=== PATIENT | female | born 1955 | race Caucasian/White ===

== ENCOUNTER 2016-06-14 12:00 | Outpatient (RCR) | payer MEDICARE, MEDICAID ==
[2016-03-21 09:45] VITALS: BP 141/72; PULSE 93; TEMP 98.3
[2016-04-19 11:04] VITALS: BP 140/72; PULSE 94; TEMP 99.1
[2016-05-17 11:34] VITALS: BP 163/87; PULSE 94; TEMP 98.7
[~2016-06-14] VITALS: Ht 177.8 cm; Wt 112.7 kg
[~2016-06-14 12:00] MED LIST: AMBIEN 10MG10 MG PO; AMBIEN CR12.5 MG PO; AMBIEN10 MG PO; AMOXICILLIN 50500 MG PO; AMOXICILLIN/CLA1 TA1 PO; ANTIVERT 25MG25 MG PO; ASPIR-LOW81 MG PO; ASPIRIN E.C. 8181 MG PO; ATIVAN 1MG T1 MG/TAB PO; ATIVAN0.5 MG PO; AUGMENTIN 250 M1 TAB PO; BIAXIN 250MG T250 M1 PO; BIAXIN 500MG T500 MG PO; BIAXIN XL500 MG PO; BIAXIN500 MG PO; CEFTIN500 MG PO; CEPHALEXIN500 M1 PO; CIPRO 250MG TA250 MG PO; CIPRO 500MG TA500 MG PO; DEMEROL IJ; FLEXERIL 1010 MG/TAB PO; FLEXERIL10 MG PO; HALCION0.25 MG PO; HCTZ; HCTZ 25MG TAB25 MG PO; HYDROXYZINE PAM25 MG PO; HYGROTON 2525 MG/TAB PO; HYGROTON25 MG PO; INDOCIN SR75 MG PO; KLONOPIN 0.5MG0.5 MG PO; LASIX 40MG TABL40 MG PO; LEVAQUIN 250MG250 MG PO; LEVAQUIN 5500 MG/TA1 PO; LISINOPRIL10 MG PO; LORTAB 10/500 51 TAB PO; LORTAB 5/500 501 TAB PO; LUNESTA 1MG TAB1 MG PO; MELATONIN20 MG PO; MELATONIN5 M1 PO; MELATONIN5 MG PO; METHADONE H10 MG/TAB PO; MOBIC 7.5MG7.5 MG PO; NEXIUM 40MG40 MG PO; NEXIUM40 MG PO; NORCO 325 MG-51 TAB PO; NORCO 325 MG-7.1 TAB PO; OCEAN NASAL SPR45 ML; PERCOCET 325 MG1 TA2 PO; PERCOCET 325 MG1 TA3 PO; PHENERGAN 25 TA25 MG PO; PHENERGAN W/CO120 M1 PO; PHENERGAN25 MG RC; PHENERGAN50 MG/SUPP RC; PREDNISONE20 MG PO; PRINIVIL40 MG PO; PRINZIDE 12.5 M1 TAB PO; PROAIR HFA0.09 MG/AC IH; PROMETHAZINE50 MG/ML IV; PYRIDIUM200 M1 PO; ROBAXIN 75750 MG/TAB PO; ROCEPHIN1 GM IM; SEROQUEL25 MG PO; XANAX 1MG1 MG PO; XANAX0.5 MG PO; XANAX2 MG PO; ZESTRIL40 MG PO; ZITHROMAX Z PA250 MG PO
[2016-06-14 13:07] VITALS: BP 152/96; PULSE 106; TEMP 98.2
[2016-12-01] MEDS ORDERED: DEMEROL IV (13:38)
[2016-12-01] MEDS ORDERED: PROMETHAZINE50 MG/ML IV (13:39)
== END 2016-06-19 | disposition still patient (30) ==
LOC: EUO
DX: G43.809 Other migraine, not intractable, without status migrainosus (principal)
CPT/HCPCS: J1644; J2175; J2550

== ENCOUNTER 2016-10-09 15:00 | Outpatient (RCR) | payer MEDICARE, MEDICAID ==
[2016-07-12 14:25] VITALS: BP 154/82; PULSE 112; TEMP 98.9
[2016-08-04 13:28] VITALS: BP 145/88; PULSE 106; TEMP 98.8
[2016-09-06 13:05] VITALS: BP 169/82; PULSE 86; TEMP 99.2
[~2016-10-09] VITALS: Ht 177.8 cm; Wt 113.0 kg
[2016-10-09 14:30] VITALS: BP 139/87; PULSE 91; TEMP 98.3
[2016-12-01] MEDS ORDERED: DEMEROL IV (13:38)
[2016-12-01] MEDS ORDERED: PROMETHAZINE50 MG/ML IV (13:39)
== END 2016-10-10 | disposition still patient (30) ==
LOC: EUO
DX: Z45.2 Encounter for adjustment and management of vascular access device (principal)
CPT/HCPCS: J1644; J2175; J2550

== ENCOUNTER 2017-01-15 14:00 | Outpatient (RCR) | payer MEDICARE, MEDICAID ==
[2016-11-03 16:48] VITALS: BP 169/101; PULSE 94; TEMP 99.3
[~2017-01-15] VITALS: Ht 177.8 cm; Wt 119.0 kg
[~2017-01-15 14:00] MED LIST changes: +DEMEROL IV
[2017-01-15 14:50] VITALS: BP 155/94; PULSE 118; TEMP 99.5
[2017-02-02] MEDS ORDERED: [UNRECOGNIZED DRUG - OTHER] PO (12:59)
== END 2017-02-01 ==
LOC: EUO
DX: G43.009 Migraine without aura, not intractable, without status migrainosus (principal)
CPT/HCPCS: J1644; J2175; J2550

== ENCOUNTER 2017-04-10 13:45 | Outpatient (RCR) | payer MEDICARE, MEDICAID ==
[~2017-04-10 13:45] MED LIST changes: +ATARAX50 MG PO; +[UNRECOGNIZED DRUG - OTHER] PO
[2017-04-10 15:04] VITALS: BP 163/82; PULSE 102; TEMP 99.2
== END 2017-04-10 15:30 | disposition home or self-care (01) ==
LOC: EUO 13:45
DX: R51 Headache (principal)
CPT/HCPCS: J1170; J1644; J2550

== ENCOUNTER → 2017-05-04 | Outpatient (CLI) | payer MEDICARE, MEDICAID ==
[2017-05-04 14:30] VITALS: BP 170/82; PULSE 88; TEMP 98
== END ==
LOC: EUO 13:29
DX: R51 Headache (principal)
CPT/HCPCS: J1170; J1644; J2550

== ENCOUNTER 2017-10-10 16:00 | Outpatient (RCR) | payer MEDICARE, MEDICAID ==
[2017-08-14 15:37] VITALS: BP 141/92; PULSE 95; TEMP 98.3
[2017-09-12 10:50] VITALS: BP 117/89; PULSE 119; TEMP 99.3
[~2017-10-10] VITALS: Ht 177.8 cm; Wt 106.0 kg
[2017-10-10 15:55] VITALS: BP 181/110; PULSE 94; TEMP 98.8
== END 2017-11-12 | disposition home or self-care (01) ==
LOC: EUO
DX: G43.809 Other migraine, not intractable, without status migrainosus (principal); Z45.2 Encounter for adjustment and management of vascular access device; Z95.828 Presence of other vascular implants and grafts
CPT/HCPCS: J1170; J1644; J2550

== ENCOUNTER 2018-01-23 12:00 | Outpatient (RCR) | payer MEDICARE, MEDICAID ==
[2017-11-21 14:40] VITALS: BP 166/85; PULSE 85; TEMP 98.7
[2017-12-07 13:55] VITALS: BP 119/79; PULSE 74; TEMP 97.5
[~2018-01-23] VITALS: Ht 177.8 cm; Wt 108.0 kg
[2018-01-23 12:46] VITALS: BP 148/81; PULSE 89; TEMP 96.9
== END 2018-02-19 | disposition home or self-care (01) ==
LOC: EUO
DX: G43.709 Chronic migraine without aura, not intractable, without status migrainosus (principal); Z45.2 Encounter for adjustment and management of vascular access device; Z95.828 Presence of other vascular implants and grafts
CPT/HCPCS: J1170; J1644; J2550

== ENCOUNTER 2018-02-22 13:58 | Outpatient (CLI) | payer MEDICARE, MEDICAID ==
[~2018-02-22] VITALS: Ht 177.8 cm; Wt 106.0 kg
[2018-02-22 14:13] VITALS: BP 152/82; PULSE 85; TEMP 98.6
== END 2018-02-22 15:23 | disposition home or self-care (01) ==
LOC: EUO 13:58
DX: G43.909 Migraine, unspecified, not intractable, without status migrainosus (principal)
CPT/HCPCS: J1170; J1644; J2550

== ENCOUNTER 2018-04-16 11:52 | Outpatient (CLI) | payer MEDICARE, MEDICAID ==
[~2018-04-16] VITALS: Ht 177.8 cm; Wt 105.5 kg
[2018-04-16 12:24] VITALS: BP 161/88; PULSE 94; TEMP 98.3
== END 2018-04-16 16:29 | disposition home or self-care (01) ==
LOC: EUO 11:52
DX: G43.919 Migraine, unspecified, intractable, without status migrainosus (principal)
CPT/HCPCS: J1170; J1644; J2550

== ENCOUNTER 2018-05-27 09:47 | Outpatient (CLI) | payer MEDICARE, MEDICAID ==
[~2018-05-27] VITALS: Ht 177.8 cm; Wt 103.0 kg
[2018-05-27 10:15] VITALS: BP 140/75; PULSE 86; TEMP 98
--- NOTE | 2018-05-27 11:05 | NUR ---
Pt discharged per w/c with son.
== END 2018-05-27 11:13 | disposition home or self-care (01) ==
LOC: EUO 09:47
DX: G43.719 Chronic migraine without aura, intractable, without status migrainosus (principal)
CPT/HCPCS: J1170; J1644; J2550

== ENCOUNTER 2018-11-11 11:39 | Outpatient (CLI) | payer MEDICARE, MEDICAID ==
[~2018-11-11] VITALS: Ht 177.8 cm; Wt 102.2 kg
[2018-11-11 12:05] VITALS: BP 165/95; PULSE 92; TEMP 98.6
[2018-11-11] MEDS ORDERED: VOLTAREN GEL 1%1 TU TP (12:40)
== END 2018-11-11 14:18 | disposition home or self-care (01) ==
LOC: EUO 11:39
DX: G43.719 Chronic migraine without aura, intractable, without status migrainosus (principal)
CPT/HCPCS: J1170; J1644; J2550

== ENCOUNTER 2019-01-21 11:35 | Outpatient (CLI) | payer MEDICARE, MEDICAID ==
[~2019-01-21] VITALS: Ht 177.8 cm; Wt 102.7 kg
[~2019-01-21 11:35] MED LIST changes: +VOLTAREN GEL 1%1 TU TP
[2019-01-21 12:29] VITALS: BP 170/88; PULSE 78; TEMP 98.1
--- NOTE | 2019-01-21 12:43 | NUR ---
Son driving pt home.
== END 2019-01-21 12:45 | disposition home or self-care (01) ==
LOC: EUO 11:35
DX: G43.709 Chronic migraine without aura, not intractable, without status migrainosus (principal)
CPT/HCPCS: J1170; J1644; J2550

== ENCOUNTER 2019-05-02 15:02 | Outpatient (CLI) | payer MEDICARE, MEDICAID ==
[~2019-05-02] VITALS: Ht 177.8 cm; Wt 103.6 kg
[2019-05-02 16:30] VITALS: BP 146/92; PULSE 73; TEMP 98.4
[2019-05-02 17:29] LABS: HEMATOCRIT 37.2 % (37.0-47.0); HEMOGLOBIN 12.7 g/dl (12.5-16.0); MEAN CELL VOLUME 92 fl (80.0-100.0); MEAN CORPUSCULAR HEMOGLOBIN 31 pg (27.0-31.0); MEAN CORPUSCULAR HGB CONC 34 g/dl (33.0-37.0); MEAN PLATELET VOLUME 10.4 fl (7.4-10.4); PLATELET COUNT 204 K/mm3 (130-400); RED BLOOD COUNT 4.06 M/mm3 (4.10-5.30)
[2019-05-02 17:41] LABS: ALBUMIN 4.1 gm/dL (3.5-5.0); BILIRUBIN,TOTAL 0.5 mg/dL (0.0-1.0); CHOLESTEROL RISK RATIO 3.6; CREATININE, serum 0.65 (0.52-1.25); POTASSIUM 4.2 mmol/L (3.4-5.0)
[2019-05-02 18:09] LABS: THYROID STIMULATING HORMONE 0.725 uIU/mL (0.465-4.680)
== END 2019-05-02 19:30 | disposition home or self-care (01) ==
LOC: EUO 15:02
PROVIDERS: Family Medicine
DX: Z79.899 Other long term (current) drug therapy (principal)
CPT/HCPCS: J1170; J1644; J2550